=== PATIENT | female | born 1995 | race Caucasian/White ===

== ENCOUNTER 2017-03-30 11:15 | Emergency (ER) | payer OTHER ==
--- NOTE | 2017-03-30 11:48 | ED ---
General Adult HPI - General Chief complaint: Headache Stated complaint: Exposure to black mold Time Seen by Provider: 03/30/17 11:37 Source: patient, family, RN notes reviewed Mode of arrival: ambulatory Limitations: no limitations - History of Present Illness Initial comments: 21 yo female presents to the ER with cc of concern for headache and cough. Patient had a recent exposure to what they believed to be is black mold back in December. She continued to have these on and off headaches and this constant ever since his exposure. The family care doctor and they did not think much of it. They state they just wanted to see if there is any way that we can make sure that she is okay. She states she just had these headaches sensitivity to light and cough. She denies any high fevers with this. There is been no nausea or vomiting. She just does not seem to be getting much better so she thought that she should be evaluated. Patient denies any recent fever, chills, shortness of breath, chest pain, back pain, abdominal pain, nausea vomiting, numbness or tingling, dysuria or hematuria, constipation or diarrhea, visual changes, or any other current symptoms. - Related Data Home Medications Medication Instructions Recorded Confirmed Norgestimate-Ethinyl Estradiol 1 tab PO DAILY 10/30/15 03/30/17 [Tri-Linyah Tablet] Citalopram Hydrobromide [CeleXA] 20 mg PO DAILY 03/30/17 03/30/17 Cyanocobalamin [Vitamin B-12] 500 mcg PO DAILY 03/30/17 03/30/17 Multivitamin [Multivitamins Adult 2 tab PO DAILY 03/30/17 03/30/17 Gummies] Allergies Allergy/AdvReac Type Severity Reaction Status Date / Time No Known Allergies Allergy Verified 03/30/17 12:01 Review of Systems ROS Statement: Those systems with pertinent positive or pertinent negative responses have been documented in the HPI. ROS Other: All systems not noted in ROS Statement are negative. Past Medical History Past Medical History: No Reported History History of Any Multi-Drug Resistant Organisms: None Reported Past Surgical History: No Surgical Hx Reported Past Psychological History: No Psychological Hx Reported Smoking Status: Current every day smoker Past Alcohol Use History: None Reported Past Drug Use History: None Reported General Exam - General Exam Comments Initial Comments: General: The patient is awake and alert, in no distress, and does not appear acutely ill. Eye: Pupils are equal, round and reactive to light, extra-ocular movements are intact; there is normal conjunctiva bilaterally. No signs of icterus. Ears, nose, mouth and throat: There are moist mucous membranes. Neck: The neck is supple, there is no tenderness. Cardiovascular: There is a regular rate and rhythm. No murmur, rub or gallop is appreciated. Respiratory: Lungs are clear to auscultation, respirations are non-labored, breath sounds are equal. No wheezes, stridor, rales, or rhonchi. Gastrointestinal: Soft, non-distended, non-tender abdomen without masses or organomegaly noted. There is no rebound or guarding present. No CVA tenderness. Bowel sounds are unremarkable. Back: There is no tenderness to palpation in the midline. There is no obvious deformity. No rashes noted. Musculoskeletal: Normal ROM, no tenderness, There is no pedal edema. There is no calf tenderness or swelling. Sensation intact. Pulses equal bilaterally 2+. Neurological: CN II-XII intact, There are no obvious motor or sensory deficits. Coordination appears grossly intact. Speech is normal. Skin: Skin is warm and dry and no rashes or lesions are noted. Psychiatric: Cooperative, appropriate mood & affect, normal judgment. Limitations: no limitations Course Vital Signs 03/30/17 11:26 Temperature 99.9 F H Pulse Rate 96 Respiratory 20 Rate Blood Pressure 174/91 O2 Sat by Pulse 99 Oximetry Medical Decision Making - Medical Decision Making 21-year-old female presents emergency Department with chief complaint of headaches and cough. They're concerned this may be related to a possible exposure to black mold back in December. At this time patient's x-ray and CAT scan of the head do not show any acute process. This time we discussed continued follow-up with the family care doctor we discussed return parameters all questions. Patient stated that she understood and she is agreement this plan. All questions have been answered. She will be discharged home. - Radiology Data Radiology results: report reviewed, image reviewed Disposition Clinical Impression: Headache, Cough Disposition: HOME SELF-CARE Condition: Stable Instructions: Acute Headache (ED) Additional Instructions: Please use medication as discussed. Please follow up with family doctor if symptoms have not improved over the next two days. Please return to the emergency room if your symptoms increase or worsen or for any other concerns. Referrals: Rashmi Petit MD [Primary Care Provider] - 1-2 days Time of Disposition: 12:25
--- NOTE | 2017-03-30 12:12 | CT ---
EXAMINATION TYPE: CT brain wo con DATE OF EXAM: 03/30/2017 COMPARISON: NONE HISTORY: Exposure to black mold. Headache. CT DLP: 1017.9 mGycm. Automated Exposure Control for Dose Reduction was Utilized. TECHNIQUE: CT scan of the head is performed without contrast. FINDINGS: There is no acute intracranial hemorrhage, mass effect, or midline shift identified. The ventricles and sulci are within normal limits in size. No suspicious extra-axial fluid collection. T he globes are intact and the visualized sinuses are clear. Left frontal sinus is noted to be hypoplas tic. IMPRESSION: No acute intracranial process.
--- NOTE | 2017-03-30 12:13 | XR ---
EXAMINATION TYPE: XR chest 2V DATE OF EXAM: 03/30/2017 COMPARISON: NONE HISTORY: Exposure to black mold with memory loss. Chest pain. TECHNIQUE: Frontal and lateral views of the chest are obtained. FINDINGS: There is no focal air space opacity, pleural effusion, or pneumothorax seen. The cardiac silhouette size is within normal limits. The osseous structures are intact. Old healed fracture of the posterior lateral margin of rib 7 on the right is incidentally noted. IMPRESSION: No acute cardiopulmonary process.
[2017-03-30 12:42] VITALS: BP 141/79; PULSE 87; RESP 16; TEMP 98
== END 2017-03-30 12:42 | disposition home or self-care (01) ==
LOC: EC 11:15
DX: R51 Headache (principal); R05 Cough; H53.149 Visual discomfort, unspecified; F17.200 Nicotine dependence, unspecified, uncomplicated; Z79.3 Long term (current) use of hormonal contraceptives; Z79.899 Other long term (current) drug therapy
CPT/HCPCS: 70450; 71046; 99284

== ENCOUNTER 2017-10-11 10:34 | Emergency (ER) | payer OTHER ==
[2017-10-11 10:41] VITALS: RESP 18
--- NOTE | 2017-10-11 10:56 | ED ---
General Adult HPI - General Source: patient, family, RN notes reviewed Mode of arrival: ambulatory Limitations: no limitations <Guillermo Kern - Last Filed: 10/11/17 10:55> <Jaime Diego - Last Filed: 10/11/17 15:00> - General Chief complaint: Psychiatric Symptoms Stated complaint: Mental Health Time Seen by Provider: 10/11/17 10:41 - History of Present Illness Initial comments: Patient 22-year-old female presents emergency room today with her mother, the chief complaint of needing psychiatric evaluation. Patient does have a brother who asked history of schizophrenia. Patient saw a counselor once when she was a child. She was on antidepressants approximately 3 months ago but does not like how they make her feel so she stopped them. Patient mother at bedside providing much history stating that she has been paranoid. States that she believes that she's having delusions. Patient does admit that she's not been sleeping well the last 3 days. She does admit that she has noticed that something seems to be different as well. She states that she's had thoughts of her herself but there is no specific plan. No specific plan of hurting anyone else. Patient denies any hallucinations or hearing voices. Patient denies any recent fever, chills, shortness of breath, chest pain, back pain, abdominal pain , nausea or vomiting, numbness or tingling, headaches or visual changes, or any other complaints. (Guillermo Kern) - Related Data Home Medications Medication Instructions Recorded Confirmed No Known Home Medications 10/11/17 10/11/17 Allergies Allergy/AdvReac Type Severity Reaction Status Date / Time No Known Allergies Allergy Verified 10/11/17 10:48 Review of Systems ROS Other: All systems not noted in ROS Statement are negative. <Guillermo Kern - Last Filed: 10/11/17 10:55> ROS Other: All systems not noted in ROS Statement are negative. <Jaime Diego - Last Filed: 10/11/17 15:00> ROS Statement: Those systems with pertinent positive or pertinent negative responses have been documented in the HPI. Past Medical History Past Medical History: Hypertension History of Any Multi-Drug Resistant Organisms: None Reported Past Surgical History: No Surgical Hx Reported Past Psychological History: Depression Smoking Status: Current every day smoker Past Alcohol Use History: Occasional Past Drug Use History: None Reported <Guillermo Kern - Last Filed: 10/11/17 10:55> General Exam Limitations: no limitations <Guillermo Kern - Last Filed: 10/11/17 10:55> General appearance: alert, in no apparent distress Head exam: Present: atraumatic, normocephalic, normal inspection Eye exam: Present: normal appearance, PERRL, EOMI. Absent: scleral icterus, conjunctival injection, periorbital swelling ENT exam: Present: normal exam, mucous membranes moist Neck exam: Present: normal inspection. Absent: tenderness, meningismus, lymphadenopathy Respiratory exam: Present: normal lung sounds bilaterally. Absent: respiratory distress, wheezes, rales, rhonchi, stridor Cardiovascular Exam: Present: regular rate, normal rhythm, normal heart sounds. Absent: systolic murmur, diastolic murmur, rubs, gallop, clicks GI/Abdominal exam: Present: soft, normal bowel sounds. Absent: distended, tenderness, guarding, rebound, rigid Extremities exam: Present: normal inspection, full ROM, normal capillary refill. Absent: tenderness, pedal edema, joint swelling, calf tenderness Back exam: Present: normal inspection Neurological exam: Present: alert, oriented X3, CN II-XII intact Psychiatric exam: Present: normal affect, normal mood Skin exam: Present: warm, dry, intact, normal color. Absent: rash <Jaime Diego - Last Filed: 10/11/17 15:00> - General Exam Comments Initial Comments: General: The patient is awake and alert, in no distress, and does not appear acutely ill. Eye: Pupils are equal, round and reactive to light, extra-ocular movements are intact. No nystagmus. There is normal conjunctiva bilaterally. No signs of icterus. Ears, nose, mouth and throat: There are moist mucous membranes and no oral lesions. Neck: The neck is supple, there is no tenderness or JVD. Cardiovascular: There is a regular rate and rhythm. No murmur, rub or gallop is appreciated. Respiratory: Lungs are clear to auscultation, respirations are non-labored, breath sounds are equal. No wheezes, stridor, rales, or rhonchi. Musculoskeletal: Normal ROM, no tenderness. Strength 5/5. Sensation intact. Pulses equal bilaterally 2+. Neurological: A&O x 3. CN II-XII intact, There are no obvious motor or sensory deficits. Coordination appears grossly intact. Speech is normal. Skin: Skin is warm and dry and no rashes or lesions are noted. Psychiatric: Cooperative (Guillermo Kern) Course <Guillermo Kern - Last Filed: 10/11/17 10:55> <Jaime Diego - Last Filed: 10/11/17 15:00> Vital Signs 10/11/17 10:36 Temperature 98 F Pulse Rate 111 H Respiratory 18 Rate Blood Pressure 144/95 O2 Sat by Pulse 99 Oximetry - Reevaluation(s) Reevaluation #1: 10/11/17 14:59 Patient is medically clear seen evaluated by psychiatry (Jaime Diego) Medical Decision Making <Guillermo Kern - Last Filed: 10/11/17 10:55> <Jaime Diego - Last Filed: 10/11/17 15:00> - Medical Decision Making 22 female seen and evaluated by psychiatry, deemed needed for inpatient psychiatric treatment and evaluation (Jaime Diego) - Lab Data Lab Results 10/11/17 10/11/17 Range/Units 12:26 12:26 Urine HCG, Qual Not Detected (Not Detectd) Urine Opiates Screen Not Detected (NotDetected) Ur Oxycodone Screen Not Detected (NotDetected) Urine Methadone Screen Not Detected (NotDetected) Ur Propoxyphene Screen Not Detected (NotDetected) Ur Barbiturates Screen Not Detected (NotDetected) U Tricyclic Antidepress Not Detected (NotDetected) Ur Phencyclidine Scrn Not Detected (NotDetected) Ur Amphetamines Screen Not Detected (NotDetected) U Methamphetamines Scrn Not Detected (NotDetected) U Benzodiazepines Scrn Not Detected (NotDetected) Urine Cocaine Screen Not Detected (NotDetected) U Marijuana (THC) Screen Not Detected (NotDetected) Disposition <Guillermo Kern - Last Filed: 10/11/17 10:55> Is patient prescribed a controlled substance at d/c from ED?: No <Jaime Diego - Last Filed: 10/11/17 15:00> Clinical Impression: Acute psychosis, Homicidal ideation Disposition: TRANSFER TO PSYCH HOSP/UNIT Condition: Fair Referrals: Rashmi Petit MD [Primary Care Provider] - 1-2 days
[2017-10-11 12:40] LABS: Amphetamine Screen,Urine Not Detected (NotDetected); Barbiturate Screen,Urine Not Detected (NotDetected); Benzodiazepines Screen,Urine Not Detected (NotDetected); Cocaine Screen,Urine Not Detected (NotDetected); Methadone Screen, Urine Not Detected (NotDetected); Opiate Screen,Urine Not Detected (NotDetected); Oxycodone Screen, Urine Not Detected (NotDetected); Phencyclidine Screen,Urine Not Detected (NotDetected); Tricyclic Antidepressant,Urine Not Detected (NotDetected); Urn Cannabinoid Scrn Not Detected (NotDetected)
[2017-10-11 16:56] LABS: Basophils % (A) 1 %; Eosinophils % (A) 1 %; HCT 42.5 % (34.0-46.0); HGB 14.1 gm/dL (11.4-16.0); Lymphocytes # (A) 2.5 k/uL (1.0-4.8); Lymphocytes % (A) 45 %; MCH 30.3 pg (25.0-35.0); MCHC 33.2 g/dL (31.0-37.0); MCV 91.2 fL (80.0-100.0); Mean Platelet Volume 6.9; Monocytes # (A) 0.3 k/uL (0-1.0); Monocytes % (A) 5 %; Neutrophils # (A) 2.6 k/uL (1.3-7.7); Neutrophils % (A) 47 %; Platelet Count 213 k/uL (150-450); RBC 4.66 m/uL (3.80-5.40); RDW 12.4 % (11.5-15.5); WBC 5.5 k/uL (3.8-10.6)
[2017-10-11 17:14] LABS: ALT 28 U/L (9-52); AST 22 U/L (14-36); Albumin 4.2 g/dL (3.5-5.0); Alkaline Phosphatase 53 U/L (38-126); Anion Gap 7 mmol/L; Blood Urea Nitrogen 8 mg/dL (7-17); Calcium 9.6 mg/dL (8.4-10.2); Carbon Dioxide 25 mmol/L (22-30); Chloride 106 mmol/L (98-107); Glucose 79 mg/dL (74-99); Potassium 4.5 mmol/L (3.5-5.1); Sodium 138 mmol/L (137-145); Total Bilirubin 0.6 mg/dL (0.2-1.3); Total Protein 7.2 g/dL (6.3-8.2)
[2017-10-11 19:17] VITALS: BP 130/82; PULSE 81; TEMP 97.8
== END 2017-10-11 22:27 ==
LOC: EC 10:34
DX: F23 Brief psychotic disorder (principal); R45.850 Homicidal ideations; R45.851 Suicidal ideations; F17.200 Nicotine dependence, unspecified, uncomplicated
CPT/HCPCS: 36415; 80053; 80306; 81025; 82075; 85025; 99285

== ENCOUNTER → 2017-10-28 | Outpatient (CLI) | payer OTHER ==
[2017-10-28 17:03] LABS: Basophils % (A) 1 %; Eosinophils # (A) 0.1 k/uL (0-0.7); Eosinophils % (A) 3 %; HCT 39.6 % (34.0-46.0); HGB 13.3 gm/dL (11.4-16.0); Lymphocytes # (A) 1.4 k/uL (1.0-4.8); Lymphocytes % (A) 39 %; MCHC 33.6 g/dL (31.0-37.0); Mean Platelet Volume 7.3; Monocytes # (A) 0.3 k/uL (0-1.0); Monocytes % (A) 8 %; Neutrophils # (A) 1.7 k/uL (1.3-7.7); Neutrophils % (A) 47 %; Platelet Count 179 k/uL (150-450); RDW 12.7 % (11.5-15.5); WBC 3.7 k/uL (3.8-10.6)
== END | disposition home or self-care (01) ==
LOC: LABWHC1 16:36
PROVIDERS: ATTEND Psychiatry & Neurology Psychiatry
DX: Z51.81 Encounter for therapeutic drug level monitoring (principal); Z79.899 Other long term (current) drug therapy
CPT/HCPCS: 36415; 85025